=== PATIENT | male | born 1955 | race African-American/Black ===

== ENCOUNTER → 2016-09-01 | Outpatient (CLI) | payer BC ==
[~2016-09-01] MED LIST: ATOR10TA60 PO
--- NOTE | 2016-09-01 13:02 | KCIC ---
PROCEDURE Coronary artery calcium score HISTORY Calcium screening. TECHNIQUE High resolution, computed tomography of the heart was performed with ECG gating and suspended respiration using the Siemens HeartView CT. No contrast material was administered. Post processing was performed on the 3-D computer workstation using diastolic phase images to measure the amount of coronary vascular calcium. Scoring was performed utilizing the Agaston Method. FINDINGS Thorax:No significant abnormality is identified in the lungs or mediastinum. Note that this CT exam is limited to the heart and adjacent structures. Coronary arteries:CALCIUM IS PRESENT. TOTAL AGASTON CALCIUM SCORE = 72.2 Calcium is detected in the coronary circulation and confirms the presence of atherosclerotic plaque. The score is derived for separate scores of 72.2 in the LAD. The presence of coronary calcium confirms the presence of atherosclerotic plaque. The greater the amount of coronary calcium, the greater the likelihood of stenotic or occlusive coronary artery disease. However, there is not a one-to-one relationship, and findings may not be site specific. The total amount of calcium correlates best with the total amount of atherosclerotic plaque, although the true "plaque burden" may be underestimated by calcium score. MILD coronary atherosclerosis is present. Individuals in this score range typically have mild to moderate luminal irregularity at coronary angiography. There is a LOW to INTERMEDIATE RISK of cardiovascular events based on this test. MINIMAL coronary atherosclerosis is present. Individuals in this score range typically have mild to moderate luminal irregularity at coronary angiography. There is LOW RISK of cardiovascular event based on this test. IMPRESSION 1. Coronary atherosclerosis is present, mild amount. 2. Intermediate risk of cardiovascular event. RECOMMENDATIONS 1. Further evaluation and prevention strategies should be based on global assessment of cardiovascular risk factors in addition to the results of this test. 2. Aggressive reduction of modifiable cardiovascular risk factors should be considered. Additional supporting information concerning the findings and recommendation contained within this report can be found in the consensus statements on coronary vascular calcium published by the [employer] and [employer] 5 Conference (Circulation 1996; 94: 0235-6721; J Am Starr Cardiol 2000; 36: 326-340 and Circulation 2000; 101: 111-116). PQRS STATEMENT One or more of the following individualized dose reduction techniques were utilized for this study: 1.Automated exposure control 2.Adjustment of the mA and/or kV according to patient size 3.Use of iterative reconstruction technique Electronically signed by: Jose Marie (Sep 01, 2016 13:01:08)
== END | disposition home or self-care (01) ==
LOC: KCIC CT 11:59
PROVIDERS: ATTEND Internal Medicine
DX: Z13.6 Encounter for screening for cardiovascular disorders (principal); I25.10 Atherosclerotic heart disease of native coronary artery without angina pectoris
CPT/HCPCS: 75571